=== PATIENT | male | born 2000 | race Caucasian/White ===

== ENCOUNTER → 2021-04-03 13:06 | Outpatient (CLI) | payer BC, SELFPAY ==
--- NOTE | ~2021-04-03 | US_ITS ---
US breast LT complete DATE: 04/03/2021 13:19 INDICATION: Left breast lump TECHNIQUE: Real-time imaging of the left breast COMPARISON: None FINDINGS: There is a small area of hypoechoic tissue in the subareolar area of the left breast most c onsistent with minimal gynecomastia. No suspicious mass or shadowing is detected. IMPRESSION: Minimal gynecomastia Reviewed, dictated and finalized at [facility]. Reviewed, dictated and finalized at [facility]. IMPRESSION: Minimal gynecomastia
== END ==
PROVIDERS: PCP Family Medicine; Visit Provider Physician Assistant Medical
DX: N63.20 Unspecified lump in the left breast, unspecified quadrant (principal); N62 Hypertrophy of breast
CPT/HCPCS: 76641